=== PATIENT | male | born 1965 | race African-American/Black ===

== ENCOUNTER 2016-10-26 12:15 | Emergency (ER) | payer OTHER ==
[2016-10-26] MEDS ORDERED: OPTIRAY 350 100 ML VIAL HMH IV ONE (12:16)
[2016-10-26] MEDS ORDERED: DEXAMETHASONE 4 MG/ML VIAL ONE (15:18)
== END 2016-10-26 15:38 | disposition home or self-care (01) ==
LOC: ER 12:15
DX: J01.00 Acute maxillary sinusitis, unspecified (principal); K11.21 Acute sialoadenitis
CPT/HCPCS: 36415; 70491; 87880; 96374; 99284; Q9967